=== PATIENT | male | born 1950 | race Hispanic/Latino ===

== ENCOUNTER 2018-03-10 09:42 | Emergency (ER) | payer OTHER ==
[~2018-03-10 09:42] MED LIST: AEC81 PO; AMAN100T PO; CARB-119 PO; CYAN100084 PO; DULO20 PO; GARL1CAP7 PO; MECL-111 PO; MULT1CAP32 PO; NIAC50TA4 PO; OMEG300C3 PO; SIMV20TA6 PO
[2018-03-10] MEDS ORDERED: ONDANSETRON ODT 4 MG TAB ONE (10:34)
[2018-03-10] MEDS ORDERED: HYDROCODONE/ACETAMINOPHEN 5/325 MG TAB ONE (10:34)
== END 2018-03-10 13:36 | disposition home or self-care (01) ==
LOC: EDH 09:42
DX: S00.83XA Contusion of other part of head, initial encounter (principal); E78.5 Hyperlipidemia, unspecified; I10 Essential (primary) hypertension; Z88.8 Allergy status to other drugs, medicaments and biological substances; Z87.891 Personal history of nicotine dependence; W22.8XXA Striking against or struck by other objects, initial encounter; Y93.89 Activity, other specified; Y92.098 Other place in other non-institutional residence as the place of occurrence of the external cause; Y99.8 Other external cause status
CPT/HCPCS: 70450

== ENCOUNTER 2019-02-07 10:44 | Emergency (ER) | payer OTHER ==
[2019-02-07 12:06] LABS: BASOPHILS % (AUTO) 1.2 % (0.0-5.0); EOSINOPHILS % (AUTO) 16.1 % (0.0-8.0); HEMATOCRIT 41.9 % (42-54); LYMPHOCYTES % (AUTO) 25.7 % (21.0-51.0); MEAN CORPUSCULAR HEMOGLOBIN 28.6 pg (27.0-33.0); MEAN CORPUSCULAR HGB CONC 33.2 g/dL (32.0-36.0); MEAN CORPUSCULAR VOLUME 86.2 fL (79-99); MONOCYTES % (AUTO) 6.7 % (3.0-13.0); NEUTROPHILS % (AUTO) 50.3 % (40.0-77.0); PLATELET COUNT (AUTO) 152 K/uL (130-400); RED BLOOD CELL COUNT(AUTO) 4.86 MIL/uL (4.50-6.20); RED CELL DISTRIBUTION WIDTH 13.4 % (11.0-15.5)
[2019-02-07 12:16] LABS: POTASSIUM 4.3 mmol/L (3.5-5.1)
== END 2019-02-07 13:24 | disposition home or self-care (01) ==
LOC: EDH 10:44
DX: R42 Dizziness and giddiness (principal); H69.80 Other specified disorders of Eustachian tube, unspecified ear; I10 Essential (primary) hypertension; E78.5 Hyperlipidemia, unspecified; G30.9 Alzheimer's disease, unspecified; F02.80 Dementia in other diseases classified elsewhere, unspecified severity, without behavioral disturbance, psychotic disturbance, mood disturbance, and anxiety; Z87.891 Personal history of nicotine dependence
CPT/HCPCS: 36415; 70450; 80048; 84484; 85025; 93005

== ENCOUNTER 2020-07-30 13:28 | Emergency (ER) | payer OTHER ==
[~2020-07-30 13:28] MED LIST changes: -MECL-111 PO; +MECL-160 PO; +SIMV-43 PO; -SIMV20TA6 PO
== END 2020-07-30 14:09 | disposition home or self-care (01) ==
LOC: EDH 13:28
DX: H10.33 Unspecified acute conjunctivitis, bilateral (principal); I10 Essential (primary) hypertension; E78.5 Hyperlipidemia, unspecified; G30.8 Other Alzheimer's disease; F02.80 Dementia in other diseases classified elsewhere, unspecified severity, without behavioral disturbance, psychotic disturbance, mood disturbance, and anxiety; Z88.8 Allergy status to other drugs, medicaments and biological substances

== ENCOUNTER 2022-01-08 15:14 | Emergency (ER) | payer OTHER ==
[~2022-01-08] VITALS: Ht 182.9 cm; Wt 115.7 kg
[2022-01-08] MEDS ORDERED: ACETAMINOPHEN 500 MG TABLET PO ONE (15:30)
[2022-01-08] MEDS ORDERED: TETANUS/DIPHTHERIA TOXOID [ADULT] 0.5 ML VIAL IM ONE (15:30)
[2022-01-08] MEDS ORDERED: CYCL10TA16 PO (17:02)
[2022-01-08] MEDS ORDERED: NAPR-1180 PO (17:02)
[2022-01-08 17:11] VITALS: BP 136/69
== END 2022-01-08 17:23 | disposition home or self-care (01) ==
LOC: EDH 15:14
DX: S16.1XXA Strain of muscle, fascia and tendon at neck level, initial encounter (principal); S29.012A Strain of muscle and tendon of back wall of thorax, initial encounter; S00.81XA Abrasion of other part of head, initial encounter; F03.90 Unspecified dementia, unspecified severity, without behavioral disturbance, psychotic disturbance, mood disturbance, and anxiety; F32.A Depression, unspecified; E78.00 Pure hypercholesterolemia, unspecified; I10 Essential (primary) hypertension; Z88.8 Allergy status to other drugs, medicaments and biological substances; Z79.899 Other long term (current) drug therapy; Z79.82 Long term (current) use of aspirin; W18.39XA Other fall on same level, initial encounter; Y93.01 Activity, walking, marching and hiking; Y92.098 Other place in other non-institutional residence as the place of occurrence of the external cause; Y99.8 Other external cause status
CPT/HCPCS: 70450; 70486; 72125; 72128; 90471; 90714

== ENCOUNTER → 2023-05-05 | Outpatient (CLI) | payer OTHER ==
[~2023-05-05] MED LIST changes: +CYCL10TA16 PO; +NAPR-1180 PO
== END | disposition home or self-care (01) ==
LOC: RAH 13:12
PROVIDERS: ATTEND Internal Medicine
DX: R13.14 Dysphagia, pharyngoesophageal phase (principal)
CPT/HCPCS: 74230; 92611

== ENCOUNTER → 2023-10-11 | Outpatient (CLI) | payer OTHER ==
[~2023-10-11] MED LIST changes: +IOHEXOL 350 MG/ML 100ML INFUS..BTL IV ONE; -MECL-160 PO; +MECL-302 PO
== END | disposition home or self-care (01) ==
LOC: RAH 10:00
PROVIDERS: ATTEND Internal Medicine Gastroenterology
DX: K76.89 Other specified diseases of liver (principal); R93.2 Abnormal findings on diagnostic imaging of liver and biliary tract
CPT/HCPCS: 74178; Q9967

== ENCOUNTER 2023-12-24 10:40 | Emergency (ER) | payer OTHER ==
[~2023-12-24] VITALS: Ht 182.9 cm; Wt 119.3 kg
[~2023-12-24 10:40] MED LIST changes: -IOHEXOL 350 MG/ML 100ML INFUS..BTL IV ONE
[2023-12-24 10:51] VITALS: BP 132/72; PULSE 69; RESP 16
[2023-12-24 11:45] LABS: HEMATOCRIT 42.7 % (42-54); MEAN CORPUSCULAR HEMOGLOBIN 28.7 pg (27.0-33.0); MEAN CORPUSCULAR HGB CONC 33.5 g/dL (32.0-36.0); MEAN CORPUSCULAR VOLUME 85.7 fL (79-99); RED BLOOD CELL COUNT(AUTO) 4.98 MIL/uL (4.50-6.20); RED CELL DISTRIBUTION WIDTH 13.1 % (11.0-15.5); WHITE BLOOD COUNT (AUTO) 5.6 K/uL (4.8-10.8)
[2023-12-24 12:00] LABS: CREATININE 1.2 mg/dL (0.5-1.3); POTASSIUM 4.2 mmol/L (3.5-5.1)
[2023-12-24 12:05] LABS: ALBUMIN 3.6 g/dL (3.5-5.0); BILIRUBIN,TOTAL 0.4 mg/dL (0.2-1.0); TOTAL PROTEIN, SERUM 7.2 g/dL (6.0-8.3)
[2023-12-24] MEDS ORDERED: MECL-302 PO (13:34)
== END 2023-12-24 13:50 | disposition home or self-care (01) ==
LOC: EDH 10:40
DX: R53.1 Weakness (principal); R42 Dizziness and giddiness; H92.02 Otalgia, left ear; I10 Essential (primary) hypertension; E78.00 Pure hypercholesterolemia, unspecified; F03.93 Unspecified dementia, unspecified severity, with mood disturbance; F32.A Depression, unspecified; Z79.82 Long term (current) use of aspirin; Z79.899 Other long term (current) drug therapy; Z88.8 Allergy status to other drugs, medicaments and biological substances
CPT/HCPCS: 36415; 80053; 84484; 85027; 93005

== ENCOUNTER → 2024-02-02 | Outpatient (CLI) | payer OTHER ==
[~2024-02-02] MED LIST changes: -CARB-119 PO; +CARB-338 PO
== END | disposition home or self-care (01) ==
LOC: RAH 12:38
PROVIDERS: ATTEND Internal Medicine
DX: R13.10 Dysphagia, unspecified (principal)
CPT/HCPCS: 74230; 92611

== ENCOUNTER → 2025-07-23 | Outpatient (CLI) | payer OTHER ==
[~2025-07-23] MED LIST changes: +IOHEXOL 350 MG/ML 100ML INFUS..BTL IV ONE
--- NOTE | 2025-07-24 03:14 | HMCIMG ---
EXAM: CT ABDOMEN AND PELVIS W/WO IV CONTRAST CLINICAL HISTORY: Abnormal findings on diagnostic imaging of the liver and biliary tract. TECHNIQUE: Axial computed tomography images of the abdomen and pelvis without and with intravenous contrast. The protocol utilizes one or more of the following dose reduction techniques: automated exposure control, adjustments of mA and/or kV according to patient size, and/or use of iterative reconstruction technique. CONTRAST: 99 mL of intravenous contrast was administered. COMPARISON: None. FINDINGS: LOWER CHEST: There is minimal bibasilar dependent atelectasis. No cardiomegaly or pericardial effusion observed. There are coronary arterial calcifications present. There is aortic annulus calcification noted. LIVER: The liver is enlarged measuring 20 cm with fatty infiltration. There are multiple bilobar hepatic hypodensities. The largest hypodense lesion is in segment VII in a subcapsular location, measuring approximately 2.7 x 3.8 x 2.7 cm, causing hepatic contour bulge. None of these hepatic hypodensities show enhancement during the arterial phase images. There is another hypodense lesion in segment II in a subcapsular location, measuring 3.1 x 3.6 x 3 cm. No calcification is present within this lesion. In the arterial phase images, this lesion shows arterial phase hyperenhancement. There is no capsular retraction. In the delayed phase images, this segment II lesion becomes isoenhancing to the liver parenchyma without washout. Small area of non-enhancement is present in this lesion. GALLBLADDER AND BILIARY TREE: The gallbladder is unremarkable. No calcified gallstones. There is no gallbladder distension or wall edema. No intra- or extrahepatic biliary ductal dilatation. PANCREAS: The pancreas is unremarkable. No focal cystic or solid mass. SPLEEN: Normal size without focal cystic or solid mass. ADRENAL GLANDS: The both adrenals are unremarkable. Non-enlarged. KIDNEYS AND URETERS: The both kidneys are unremarkable. Normal renal size and position. There is no hydronephrosis or nephrolithiasis. There is bilateral perinephric fat stranding, non-specific. URINARY BLADDER: There is mild thickening of the urinary bladder wall, which may represent sequelae of chronic bladder outflow obstruction, measuring up to 4 mm. Incompletely distended. REPRODUCTIVE ORGANS: There is mild prostatomegaly. No pelvic masses or pelvic ascites. BOWEL: There is an area of non-specific mesenteric fat stranding in the left upper abdomen, with a few enlarged lymph nodes, suggestive of mesenteric panniculitis. The ileocecal valve cusps show fatty infiltration. The appendix is unremarkable, series 2, image 70/132. There are scattered colonic diverticula, without diverticulitis. No stomach or bowel distension. No focal inflammatory change observed. LYMPH NODES: A few enlarged lymph nodes are present in the left upper abdomen associated with non-specific mesenteric fat stranding, suggestive of mesenteric panniculitis. Not enlarged mesenteric or retroperitoneal lymph nodes. PERITONEUM: No ascites or free air. No other fluid collection. VESSELS: The abdominal aorta demonstrates atheromatous calcification without aneurysm or dissection. ABDOMINAL WALL: There is a small umbilical hernia containing fat with the defect measuring 1 cm in size. No discrete abdominal or pelvic wall hernia observed. BONES: There are degenerative changes in the spine. No lytic or blastic abnormality observed. Total exam DLP is 6430. IMPRESSION: 1. Enlarged liver with fatty infiltration. 2. Hypervascular subcapsular lesion in segment II measuring up to 4 cm with arterial phase hyperenhancement and isoenhancement on delayed images without washout, most consistent with focal nodular hyperplasia or atypical hemangioma. Follow up with MRI abdomen with IV contrast. 3. Multiple additional bilobar nonenhancing hepatic hypodensities; largest in segment VII measuring 2.7 x 3.8 x 2.7 cm with contour bulge. These are compatible with simple cysts. /[place]
== END | disposition home or self-care (01) ==
LOC: RAH 09:24
PROVIDERS: ATTEND Internal Medicine Gastroenterology
DX: K76.0 Fatty (change of) liver, not elsewhere classified (principal); M47.817 Spondylosis without myelopathy or radiculopathy, lumbosacral region; K44.9 Diaphragmatic hernia without obstruction or gangrene; K57.30 Diverticulosis of large intestine without perforation or abscess without bleeding; R93.2 Abnormal findings on diagnostic imaging of liver and biliary tract; K76.89 Other specified diseases of liver; N40.0 Benign prostatic hyperplasia without lower urinary tract symptoms; J98.11 Atelectasis; I25.10 Atherosclerotic heart disease of native coronary artery without angina pectoris; I70.0 Atherosclerosis of aorta
CPT/HCPCS: 74178; Q9967